=== PATIENT | female | born 1940 | race Caucasian/White ===

== ENCOUNTER → 2020-11-25 | Outpatient (CLI) | payer MEDICARE ==
[~2020-11-25] MED LIST: ALEN70TA71 PO; ATOR40TA59 PO; CHOL2400 MC; DICL1KIT14 TP; FLUT1DIS3 IH; FURO40TA4 PO; IRON15TA3 PO; METO25TA4 PO; MONT10TA49 PO; PANT20TA2 PO; POTA20TA4 PO; REGADENOSON 0.4 MG/5 ML DISP.SYRIN. IV ONE; ROPI0.5T4 PO; VENTOLIN HFA18 GM INH
--- NOTE | 2020-11-25 13:56 | RAD ---
MR#: [id number] Date of Study: 11/25/2020 Ordering Physician: MARGOTH VELAZQUEZ, Referring Physician: MARGOTH VELAZQUEZ, Tech: Michael Randle MBA, RDMS, RVT, RDCS, RTR APPROVED REPORT Patient Location: OUT-PATIENT Indications PAD VELOCITY AND DOPPLER WAVEFORM ANALYSIS RIGHT cm/secWaveformSeverity LEFT cm/secWaveform Severity dCFA 133.0BiphasicdCFA 83.0Biphasic Prof Fem Art. 108.0MonophasicProf Fem Art. 108.0Biphasic Fem Art Prox. 136.0BiphasicFem Art Prox. 109.0Biphasic Fem Art Mid. 102.0BiphasicFem Art Mid. 95.0Biphasic Fem Art Dist. 105.0BiphasicFem Art Dist. 97.0Biphasic Pop Art(Fossa) 77.0BiphasicPop Art(AK) 106.0Biphasic DEPUTY OF COUNTER INTELLIGENCE Prox. 72.0BiphasicPTA Prox. 98.0Biphasic DEPUTY OF COUNTER INTELLIGENCE Dist. 78.0BiphasicPTA Dist. 61.0Biphasic Per Art Mid. 72.0BiphasicPer Art Mid. JERRI Prox. 69.0BiphasicATA Prox. 78.0Biphasic DPA 68BiphasicDPA 71Biphasic Findings Grayscale images of the bilateral lower extremity arterial vessels demonstrates mild to moderate diff use atherosclerotic plaque. Spectral waveforms overall are biphasic in nature from the common femora l artery to the below-knee vessels. No focal obstruction is noted. There is three-vessel runoff on the right side and two-vessel runoff on the left side. The peroneal artery in the left side was not well visualized. Critical Notification Critical Value: No <Conclusion> 1. No significant lower extremity arterial disease bilaterally. Signed by : Kvng Rodriguez, Electronically Approved : 11/25/2020 13:56:18
--- NOTE | 2020-11-25 14:37 | CARD ---
MR#: [id number] Date of Study: 11/25/2020 Ordering Physician: MARGOTH VELAZQUEZ, Referring Physician: MARGOTH VELAZQUEZ Tech: [facility] APPROVED REPORT EXAM: Two-dimensional and M-mode echocardiogram with Doppler and color Doppler. Other Information Quality : AverageHR: 74bpm Rhythm : NSR INDICATION RISK FACTORS Hypertension Hyperlipidemia 2D DIMENSIONS RVDd3.7 (2.9-3.5cm)IVSd1.1 (0.7-1.1cm) LVDd4.1 (3.9-5.9cm)PWd1.1 (0.7-1.1cm) IVSs1.6 (0.8-1.2cm)LVDs3.2 (2.5-4.0cm) FS (%) 22.6 %PWs1.6 (0.8-1.2cm) SV33.7 mlLVEF(%)45.9 (>50%) Aortic Valve AoV Peak Jimmy.216.2cm/sAoV VTI40.0cm AO Peak GR.18.7mmHgLVOT Peak Jimmy.108.8cm/s LVOT VTI 19.36cmAO Mean GR.9mmHg Mitral Valve MV E Zxbatytj610.0cm/s TDI E/Lateral E'8.0E/Medial E'13.1 Tricuspid Valve TR P. Mpktjesh837ve/sTR Peak Gr.65mmHg LEFT VENTRICLE The left ventricle is normal size. There is borderline to mild concentric left ventricular hypertroph y. The left ventricular systolic function is normal and the ejection fraction is within normal range. EF 55% There is normal LV segmental wall motion. Tissue Doppler imaging reveals moderate left ventri cular diastolic dysfunction. RIGHT VENTRICLE The right ventricle is normal size. There is normal right ventricular wall thickness. The right ventr icular systolic function is normal. ATRIA The left atrium is severely dilated. The right atrium is mildly dilated. The interatrial septum is in tact with no evidence for an atrial septal defect or patent foramen ovale as noted on 2-D or Doppler imaging. AORTIC VALVE The aortic valve is calcified and displays decreased opening. Doppler and Color Flow revealed trace a ortic regurgitation. There is trace valvular aortic stenosis. MITRAL VALVE Mitral annular calcification is borderline. There is no evidence of mitral valve prolapse. There is n o mitral valve stenosis. Doppler and Color-flow revealed mild mitral regurgitation. TRICUSPID VALVE The tricuspid valve is normal in structure and function. Doppler and Color Flow revealed mild tricusp id regurgitation. Estimated PAP 72 mmHg. There is no tricuspid valve stenosis. PULMONIC VALVE The pulmonary valve is normal in structure and function. Doppler and Color Flow revealed mild to mode rate pulmonic valvular regurgitation. There is no pulmonic valvular stenosis. GREAT VESSELS The aortic root is normal in size. The ascending aorta is normal in size. The IVC is normal in size a nd collapses >50% with inspiration. PERICARDIAL EFFUSION There is no evidence of significant pericardial effusion. Critical Notification Critical Value: No <Conclusion> The left ventricular systolic function is normal and the ejection fraction is within normal range. EF 55% Doppler and Color Flow revealed mild tricuspid regurgitation. Estimated PAP 72 mmHg consistent with severe pulmonary HTN. Doppler and Color Flow revealed mild to moderate pulmonic valvular regurgitation. Signed by : Kvng Rodriguez, Electronically Approved : 11/25/2020 14:36:48
--- NOTE | 2020-11-26 13:42 | RAD ---
MR#: [id number] Date of Study: 11/25/2020 Ordering Physician: MARGOTH VELAZQUEZ, Referring Physician: CAROLINA MERAZ Tech: RT Luba (R) (N) APPROVED REPORT Test Type: Pharmacological Stress Nurse/Tech: Andres Batres RN Test Indications: CAD Cardiac History: Heart Cath 8mths ago, HTN, PPM, See EMR. Medications: See EMR. Medical History: Asthma/COPD, See EMR. Resting ECG: Paced, A-fib Resting Heart Rate: 85 bpm Resting Blood Pressure: 159/80mmHg Pretest Chest Pain: No chest pain Nurse/Tech Notes Lungs CTA, Heart tones irregular. Consent: The procedure was explained to the patient in lay terms. Informed consent was witnessed. Ketan eout was entered into [employer]. History and Stress Test performed by RT Brad (R) (N) Pharm. Details Pharmacologic stress testing was performed using 0.4mg per 5ml of regadenoson given intravenously ove r 7-10 seconds. Stress Symptoms No chest pain or symptoms. POST EXERCISE Reason for Termination: Infusion complete Max HR: 112 bpm Max Blood Pressure: 158/67mmHg Blood Pressure response to exercise: Normal blood pressure response during stress. Heart Rate response to exercise: WNL Chest Pain: No. Arrhythmia: No. ST Change: No. No changes from baseline EKG. INTERPRETATION Stress EKG Conclusion: No evidence of stress induced EKG changes. Baseilne atrial fibrillation with intermittent v-pacing Imaging Protocol IMAGE PROTOCOL: Rest Tc-99m/stress Tc-99m 1 day Rest: Stress: Viability: Radiopharm.Tc99m NlylbejuwQt42o Sestamibi Dose10.6mCi 32mCi Duration 13min. 13min. Img Date 11/25/2020 11/25/2020 Inj-Img Ttjw94lbr. 60min. Rest Admin Site:IV - Left WristAdministrator:RT Luba (R)(N) Stress Admin Site: IV - Left WristAdministrator: RT Brad (Ruddy)(N) STRESS DATA End Diast. Vol.104.0mlLVEDV index BSA56.0ml End Syst. Vol.41.0mlLVESV index BSA22.0ml Myocardial Ifkt402.0gEject. Llocybmi37.0% Stress Scores Regional WT1.00Summed WT19.00 Regional WM0.00Summed WM4.00 The rest and stress images show normal perfusion, normal contraction and thickening. LV Perf. Quant 17 Seg. SSS7.00 17 Seg. SRS2.00 17 Seg. SDS6.00 Stress Defect Extent (% LAD)0.00Rest Defect Extent (% LAD)0.00Rev. Defect Extent (% LAD)0.00 Stress Defect Extent (% LCX) 25.00Rest Defect Extent (% LCX)0.00Rev. Defect Extent (% LCX)20.00 Stress Defect Extent (% RCA)2.20Rest Defect Extent (% RCA)12.20Rev. Defect Extent (% RCA)2.20 Stress Defect Extent (% BEBE)10.20Rest Defect Extent (% BEBE)2.40Rev. Defect Extent (% BEBE)7.00 Other Information Quality:Fair Risk Assessment: Low Risk Conclusion 1. No evidence of stress induced EKG changes. 2. Normal perfusion at stress/rest. 3. Normal EF at 60% 4. Low risk study overall. Signed by : Kvng Rodriguez, Electronically Approved : 11/26/2020 11:28:19
== END ==
LOC: NM 08:07
PROVIDERS: ATTEND Internal Medicine Cardiovascular Disease
DX: I08.8 Other rheumatic multiple valve diseases (principal); I11.9 Hypertensive heart disease without heart failure; I70.0 Atherosclerosis of aorta; I73.9 Peripheral vascular disease, unspecified; I25.10 Atherosclerotic heart disease of native coronary artery without angina pectoris; I48.0 Paroxysmal atrial fibrillation
CPT/HCPCS: 78452; 93017; 93306; 93925; A9500; J2785

== ENCOUNTER 2021-04-29 11:21 | Inpatient (IN) | payer MEDICARE ==
[~2021-04-29] VITALS: Ht 157.5 cm; Wt 93.4 kg
[~2021-04-29 11:21] MED LIST changes: -REGADENOSON 0.4 MG/5 ML DISP.SYRIN. IV ONE
--- NOTE | 2021-04-29 11:43 | ED.ADGEN ---
General Adult EDM: Chief Complaint: LACERATION/AVULSION HPI: HPI: Patient is a 80 year old female coming in from nursing facility for bilateral chandler lacerations. Patient was trying to hurry to get to the restroom when she tripped and fell and slid her legs down the walker. No other complaints. Patient's last tetanus within 5 years. Takes aspirin but no other blood thinners. Review of Systems: Review of Systems: All other systems within normal limits except for as noted in the HPI Current Medications: Current Medications Medications (Trade) Dose Ordered Sig/Yg Start Time Stop Time Status Last Admin Dose Admin Cefazolin Sodium (Ancef Im) 2 gm 1X ONCE 04/29/21 14:15 04/29/21 14:16 DC 04/29/21 14:35 2 GM Fentanyl Citrate (Fentanyl 2ml Vial) 75 mcg 1X ONCE 04/29/21 11:45 04/29/21 11:46 DC 04/29/21 12:06 75 MCG Gelatin (Gelfoam Size 100) 1 each 1X ONCE 04/29/21 13:15 04/29/21 13:16 DC 04/29/21 13:58 1 EACH Lidocaine HCl (Lidocaine 1% 20ml Vial) 5 ml 1X ONCE 04/29/21 14:30 04/29/21 14:31 DC 04/29/21 14:39 5 ML Lidocaine/ Epinephrine (LIDOCAINE 2%-EPI 1:100,000 multi-dose) 20 ml 1X ONCE 04/29/21 11:45 04/29/21 11:46 DC 04/29/21 12:06 20 ML Lorazepam (Ativan) 0.5 mg 1X ONCE 04/29/21 12:15 04/29/21 12:16 DC 04/29/21 12:13 0.5 MG Tetracaine/ Epinephrine/ Lidocaine (Let (Zlnj-Epaxyiz-Eibnv) Gel) 6 ml 1X ONCE 04/29/21 12:15 04/29/21 12:16 DC 04/29/21 12:14 6 ML Thrombin 20,000 unit 1X ONCE 04/29/21 13:15 04/29/21 13:16 DC Allergies: Allergies: Allergies Coded Allergies Type Severity Reaction Last Updated Verified meperidine Allergy Mild "out of mind" 11/25/20 Yes Physical Exam: PE: Constitutional: Well developed, well nourished, no acute distress, non-toxic appearance. [] HENT: Normocephalic, atraumatic, bilateral external ears normal, nose normal. [] Eyes: PERRLA, conjunctiva normal, no discharge. [] Neck: No rigidity, supple, no stridor. [] Cardiovascular: Regular rate and rhythm, brisk cap refill [] Lungs & Thorax: Non labored symmetric respirations, no tachypnea or respiratory distress [] Abdomen: Soft, nondistended. Skin: Warm, dry, no erythema, no rash. Large anterior lower leg lacerations [] Back: Unremarkable Extremities: No deformities, range of motion grossly intact, no lower extremity edema [] Neurologic: Alert and oriented X 3, no focal deficits noted. [] Psychologic: Affect normal, judgement normal, mood normal. [] Current Patient Data: Vital Signs: Vital Signs Date Time Temp Pulse Resp B/P (MAP) Pulse Ox O2 Delivery O2 Flow Rate FiO2 04/29/21 11:25 98.4 83 24 164/72 (102) 99 Nasal Cannula 3.0 98.4 EKG: EKG: [] Heart Score: C/O Chest Pain: No Risk Factors: Risk Factors: DM, Current or recent (<one month) smoker, HTN, HLP, family history of CAD, obesity. Risk Scores: Score 0 - 3: 2.5% MACE over next 6 weeks - Discharge Home Score 4 - 6: 20.3% MACE over next 6 weeks - Admit for Clinical Observation Score 7 - 10: 72.7% MACE over next 6 weeks - Early Invasive Strategies Radiology/Procedures: Radiology/Procedures: [facility] [address] [place], [place] [id number] IMAGING REPORT Signed PATIENT: OLIVIER DIEGO ACCOUNT: [id number] : 1940 LOCATION: ER AGE: 80 SEX: F EXAM STATUS: PRE ER ORD. PHYSICIAN: AISHWARYA VAZQUEZ MD REASON: fall, chandler injury PROCEDURE: TIBIA FIBULA BILAT XR TIBIA+FIBULA 04/29/2021 11:22 AM INDICATION: Fall, Omari injury COMPARISON: None available. TECHNIQUE: 3 views of the right and 3 views of the left tibia and fibula are provided. FINDINGS/ IMPRESSION: Right: There is diffuse extensive edema along the proximal tibia. Osseous remode ling of the proximal fibula may reflect sequela of prior trauma. No acute fracture or dislocation is identified. Left: Remote healed fracture involving the middle one third of the left fibula. There is subcutaneous gas identified along the mid left leg laterally with focal subcutaneous edema. Correlate with any ulceration at this level. No definite periosteal reaction. No acute fracture or dislocation. Electronically signed by: Odalys Thompson MD (04/29/2021 12:35 PM) [id number] DICTATED and SIGNED BY: ODALYS THOMPSON MD DATE: 04/29/21 [id number] [] Patient was prepped and draped in normal fashion, wound irrigated and cleansed with copious normal saline. The right-sided 14 cm wound and left-sided 12 cm wound was anesthetized with lidocaine 2% with epinephrine. Depth of wound was examined and no foreign bodies found. Wound was approximated with 2-0 Ethilon suture in a simple pattern. 16 sutures were placed on right and 8 sutures on left placed without complication. Wound was then packed with iodoform packing on the left and both side dressed a nonadherent bandage Course & Med Decision Making: Course & Med Decision Making Patient lives alone and does not have any assistance. Son states that there is nobody available who will be able to assist patient. Also patient has significant blood loss and has a risk for rebleeding. Dragon Disclaimer: Draggloria Disclaimer: This electronic medical record was generated, in whole or in part, using a voice recognition dictation system. Departure Departure Impression: Primary Impression: Fall Additional Impressions: Laceration of right lower extremity Laceration of left lower extremity Disposition: ADMITTED INPATIENT Admitting Physician: BHARAT Condition: STABLE Referrals: SARAH BENSON MD (PCP) Patient Instructions: Laceration Care, Adult Additional Instructions: Follow-up with [facility] [address] [place] [address], [address] [place] [address] On Wednesday for wound care for appointment at 8:15 AM Scripts Sulfamethoxazole/Trimethoprim (BACTRIM DS TABLET) 1 Each Tablet 1 TAB PO BID for infection for 7 Days, #14 TAB Prov: AISHWARYA VAZQUEZ MD 04/29/21 Cephalexin (CEPHALEXIN) 500 Mg Tablet 1 TAB PO TID for antibiotic for 7 Days, #21 TAB Prov: AISHWARYA VAZQUEZ MD 04/29/21 Acetaminophen With Codeine (ACETAMINOPHEN-COD #3 TABLET) 1 Each Tablet 1 TAB PO PRN Q4HRS PRN for PAIN for 3 Days, #12 TAB Prov: AISHWARYA VAZQUEZ MD 04/29/21 Problem Qualifiers AISHWARYA VAZQUEZ MD Apr 29, 2021 11:43
[2021-04-29] MEDS ORDERED: LIDOCAINE 2%/EPI 1:100,000 20 ML VIAL. INJ ONE (11:45)
[2021-04-29] MEDS ORDERED: fentaNYL PF VIAL 100 MCG/2 ML VIAL IM ONE (11:45)
[2021-04-29] MEDS ORDERED: LIDOCAINE/EPI/TETRACAINE TOPICAL GEL 3 ML. TP ONE (12:15)
[2021-04-29] MEDS ORDERED: LORazepam 0.5 MG TABLET PO ONE (12:15)
[2021-04-29] MEDS ORDERED: GELATIN SPONGE SIZE 100. TP ONE ×2 (12:30→13:15)
--- NOTE | 2021-04-29 12:37 | RAD ---
XR TIBIA+FIBULA 04/29/2021 11:22 AM INDICATION: Fall, Omari injury COMPARISON: None available. TECHNIQUE: 3 views of the right and 3 views of the left tibia and fibula are provided. FINDINGS/ IMPRESSION: Right: There is diffuse extensive edema along the proximal tibia. Osseous remodeling of the proximal fibula may reflect sequela of prior trauma. No acute fracture or dislocation is identified. Left: Remote healed fracture involving the middle one third of the left fibula. There is subcutaneous gas identified along the mid left leg laterally with focal subcutaneous edema. Correlate with any ul ceration at this level. No definite periosteal reaction. No acute fracture or dislocation. Electronically signed by: Belem Dyson MD (04/29/2021 12:35 PM) [id number]
[2021-04-29] MEDS ORDERED: THROMBIN TOPICAL 20,000 UNIT SPRAY.SYRN KIT TP ONE (13:15)
[2021-04-29] MEDS ORDERED: ceFAZolin IM 1 GM VIAL IM ONE (14:15)
[2021-04-29] MEDS ORDERED: LIDOCAINE 1% Multi-Dose 20 ML VIAL. IM ONE (14:30)
[2021-04-29] MEDS ORDERED: CEPH500T PO (15:10)
[2021-04-29] MEDS ORDERED: SULF1TAB24 PO (15:10)
[2021-04-29] MEDS ORDERED: ACET1TAB33 PO (15:10)
[2021-04-29] MEDS ORDERED: ACETAMINOPHEN 325 MG TABLET. PO PRN (15:30)
[2021-04-29] MEDS ORDERED: ONDANSETRON PF 4 MG/2 ML VIAL. IVP PRN (15:30)
[2021-04-29] MEDS ORDERED: fentaNYL PF VIAL 100 MCG/2 ML VIAL IVP PRN (15:30)
[2021-04-29 16:47] LABS: BASO # 0.1 x10^3/uL (0.0-0.2); BASO % 1 % (0-3); EOS # 0.1 x10^3/uL (0.0-0.7); EOS % 2 % (0-3); HEMATOCRIT 34.7 % (36.0-47.0); HEMOGLOBIN 11.4 g/dL (12.0-15.5); LYMPH # 0.9 x10^3/uL (1.0-4.8); LYMPH % 14 % (24-48); MEAN CORPUSCULAR HEMOGLOBIN 29 pg (25-35); MEAN CORPUSCULAR HGB CONC 33 g/dL (31-37); MEAN CORPUSCULAR VOLUME 89 fL (79-100); MONO # 0.7 x10^3/uL (0.0-1.1); MONO % 11 % (0-9); NEUT # 4.5 x10^3/uL (1.8-7.7); NEUT % 72 % (31-73); PLATELET COUNT 172 x10^3/uL (140-400); RED BLOOD COUNT 3.91 x10^6/uL (3.50-5.40); RED CELL DISTRIBUTION WIDTH 14.9 % (11.5-14.5); WHITE BLOOD COUNT 6.2 x10^3/uL (4.0-11.0)
[2021-04-29 16:55] LABS: CALCIUM 8.9 mg/dL (8.5-10.1); CREATININE 1.3 mg/dL (0.6-1.0); GFR 39.2; POTASSIUM 4.4 mmol/L (3.5-5.1)
[2021-04-29 18:53] VITALS: BP 137/42
--- NOTE | 2021-04-29 21:50 | HP ---
DATE OF SERVICE: 04/29/2021 ADMIT DATE: 04/29/2021 CHIEF COMPLAINT: Fall with lacerations. HISTORY OF PRESENT ILLNESS: The patient is a pleasant 80-year-old female who presented from a detention. She fell. Apparently, she fell backwards and somehow tripped over her walker. The walker somehow scratched down her legs and caused severe lacerations to the anterior part of her shins. The ER doctor has sutured them. She states there was a lot of blood and some muscle showing. There is some adipose tissue. We are going to admit the patient and do some wound care and probably have to get her to rehab. PAST MEDICAL HISTORY: Debility, arthritis, falls, polypharmacy, UTI, asthma, anemia, hyperlipidemia, hypertension, incontinence, muscle spasms, edema, allergic rhinitis, GERD, osteoporosis. ALLERGIES: MEPERIDINE. FAMILY HISTORY: Hypertension. SOCIAL HISTORY: She does not drink, smoke or take drugs. She lives in a detention. MEDICATIONS: Reviewed. She is on 16, please refer to the MRAD. REVIEW OF SYSTEMS: Unable to obtain. She is pleasantly confused. PHYSICAL EXAMINATION: VITALS: Within normal limits and are stable. GENERAL: She is pleasantly confused. HEENT: Normal cephalic atraumatic, external auditory canals are patent. EYES: Extraocular muscles are intact, pupils are equally round and reactive to light and accommodation. MUSCULOSKELETAL: Well developed, well nourished, good range of motion. ENDOCRINE: No thyromegaly was palpated. LYMPHATICS: No cervical chain or axillary nodes were noted. HEMATOPOIETIC: No bruising. NECK: Supple, no JVD, no thyromegaly was noted. LUNGS: Clear to auscultation in all lung dockery without rhonchi or wheezing. HEART: RRR, S1, S2 present. Peripheral pulses intact, no obvious murmurs were noted. ABDOMEN: Soft, nontender. Positive bowel sounds no organomegaly, normal bowel sounds. EXTREMITIES: The lower extremities both have a large amount of clean, dry, intact dressings. Please see the pictures. NEUROLOGIC: She is pleasantly confused. PSYCHIATRIC: She is pleasantly confused. SKIN: No ulcerations or rashes, good skin turgor, no jaundice. VASCULAR: Good capillary refill, neurovascular bundle appears to be intact. LABORATORY DATA: Hemoglobin is 11.4. Electrolytes are basically normal other than a creatinine of 1.3. ASSESSMENT AND PLAN: Fall with lacerations. For now, we are going to admit the patient. Consult PT, OT and the Wound Care team, home meds, DVT prophylaxis. Full code. Consult [facility] for possible senior living. IV antibiotics. CHARMAINE DR: Alfredo TID: [id number]
[2021-04-29] MEDS: cefTRIAXone IV Push 1 GM VIAL. IVP SCH (21:53)
[2021-04-29 23:00] VITALS: BP 140/63
[2021-04-30 03:00] VITALS: BP 149/95
[2021-04-30 05:10] LABS: BASO # 0.1 x10^3/uL (0.0-0.2); BASO % 1 % (0-3); EOS # 0.1 x10^3/uL (0.0-0.7); EOS % 2 % (0-3); HEMATOCRIT 30.9 % (36.0-47.0); HEMOGLOBIN 10.3 g/dL (12.0-15.5); LYMPH # 0.7 x10^3/uL (1.0-4.8); LYMPH % 11 % (24-48); MEAN CORPUSCULAR HEMOGLOBIN 30 pg (25-35); MEAN CORPUSCULAR HGB CONC 33 g/dL (31-37); MEAN CORPUSCULAR VOLUME 89 fL (79-100); MONO # 0.9 x10^3/uL (0.0-1.1); MONO % 14 % (0-9); NEUT # 4.4 x10^3/uL (1.8-7.7); NEUT % 72 % (31-73); PLATELET COUNT 139 x10^3/uL (140-400); RED BLOOD COUNT 3.46 x10^6/uL (3.50-5.40); RED CELL DISTRIBUTION WIDTH 14.8 % (11.5-14.5); WHITE BLOOD COUNT 6.2 x10^3/uL (4.0-11.0)
[2021-04-30 05:24] LABS: CALCIUM 8.5 mg/dL (8.5-10.1); CREATININE 1.3 mg/dL (0.6-1.0); GFR 39.2; POTASSIUM 4.2 mmol/L (3.5-5.1)
[2021-04-30 07:00] VITALS: BP 146/60
[2021-04-30] MEDS: oxyCODONE/APAP 5/325 1 TAB TABLET PO PRN ×3 (09:09→21:07)
--- NOTE | 2021-04-30 10:59 | PDOC ---
[employer] PROGRESS NOTE Date of Service DOS: DATE: 04/30/21 TIME: 10:48 Chief Complaint Chief Complaint Lower Leg Lacerations bilaterally, History of Falls History of Present Illness History of Present Illness 04/30/2021 Patient seen and examined, patient in NAD and states she is feeling better than yesterday. Patient has bilateral lower leg lacerations that were sutured in ED, some fresh blood seen on bandages Patient is on Antibiotics (IV Rocephin) Consulted SW for evaluation for Custodial, consulted PT/OT Discussed with RN Reviewed chart Vitals/I&O Vitals/I&O: Vital Signs Date Time Temp Pulse Resp B/P (MAP) Pulse Ox O2 Delivery O2 Flow Rate FiO2 04/30/21 07:00 97.5 94 16 146/60 (88) 98 Nasal Cannula 3.0 97.5 I & O 04/29/21 04/29/21 04/30/21 15:00 23:00 07:00 Intake Total 120 ml Output Total 0 ml 350 ml Balance 0 ml -230 ml Labs Labs: Laboratory Tests Test 04/29/21 16:40 04/30/21 04:55 White Blood Count 6.2 x10^3/uL (4.0-11.0) 6.2 x10^3/uL (4.0-11.0) Red Blood Count 3.91 x10^6/uL (3.50-5.40) 3.46 x10^6/uL (3.50-5.40) Hemoglobin 11.4 g/dL (12.0-15.5) 10.3 g/dL (12.0-15.5) Hematocrit 34.7 % (36.0-47.0) 30.9 % (36.0-47.0) Mean Corpuscular Volume 89 fL (79-100) 89 fL (79-100) Mean Corpuscular Hemoglobin 29 pg (25-35) 30 pg (25-35) Mean Corpuscular Hemoglobin Concent 33 g/dL (31-37) 33 g/dL (31-37) Red Cell Distribution Width 14.9 % (11.5-14.5) 14.8 % (11.5-14.5) Platelet Count 172 x10^3/uL (140-400) 139 x10^3/uL (140-400) Neutrophils (%) (Auto) 72 % (31-73) 72 % (31-73) Lymphocytes (%) (Auto) 14 % (24-48) 11 % (24-48) Monocytes (%) (Auto) 11 % (0-9) 14 % (0-9) Eosinophils (%) (Auto) 2 % (0-3) 2 % (0-3) Basophils (%) (Auto) 1 % (0-3) 1 % (0-3) Neutrophils # (Auto) 4.5 x10^3/uL (1.8-7.7) 4.4 x10^3/uL (1.8-7.7) Lymphocytes # (Auto) 0.9 x10^3/uL (1.0-4.8) 0.7 x10^3/uL (1.0-4.8) Monocytes # (Auto) 0.7 x10^3/uL (0.0-1.1) 0.9 x10^3/uL (0.0-1.1) Eosinophils # (Auto) 0.1 x10^3/uL (0.0-0.7) 0.1 x10^3/uL (0.0-0.7) Basophils # (Auto) 0.1 x10^3/uL (0.0-0.2) 0.1 x10^3/uL (0.0-0.2) Sodium Level 136 mmol/L (136-145) 137 mmol/L (136-145) Potassium Level 4.4 mmol/L (3.5-5.1) 4.2 mmol/L (3.5-5.1) Chloride Level 101 mmol/L (98-107) 102 mmol/L (98-107) Carbon Dioxide Level 30 mmol/L (21-32) 31 mmol/L (21-32) Anion Gap 5 (6-14) 4 (6-14) Blood Urea Nitrogen 18 mg/dL (7-20) 16 mg/dL (7-20) Creatinine 1.3 mg/dL (0.6-1.0) 1.3 mg/dL (0.6-1.0) Estimated GFR (Cockcroft-Gault) 39.2 39.2 Glucose Level 102 mg/dL (70-99) 116 mg/dL (70-99) Calcium Level 8.9 mg/dL (8.5-10.1) 8.5 mg/dL (8.5-10.1) Assessment and Plan Assessmemt and Plan Problems Medical Problems: (1) Fall Status: Acute (2) Laceration of left lower extremity Status: Acute (3) Laceration of right lower extremity Status: Acute PLAN: Continue Antibiotics (IV Rocephin) Continue wound care Consult OT/PT Trend Labs, monitor Hgb Home Meds reconciled today and started Evaluation by Assistant Professor Of Criminal Justice for Custodial Full Code DVT Prophylaxis Comment Review of Relevant I have reviewed the following items talat (where applicable) has been applied. Medications: Current Medications Medications (Trade) Dose Ordered Sig/Yg Route PRN Reason Start Time Stop Time Status Last Admin Dose Admin Fentanyl Citrate (Fentanyl 2ml Vial) 75 mcg 1X ONCE IM 04/29/21 11:45 04/29/21 11:46 DC 04/29/21 12:06 Lidocaine/ Epinephrine (LIDOCAINE 2%-EPI 1:100,000 multi-dose) 20 ml 1X ONCE INJ 04/29/21 11:45 04/29/21 11:46 DC 04/29/21 12:06 Lorazepam (Ativan) 0.5 mg 1X ONCE PO 04/29/21 12:15 04/29/21 12:16 DC 04/29/21 12:13 Tetracaine/ Epinephrine/ Lidocaine (Let (Txsr-Fravqan-Jjfkj) Gel) 6 ml 1X ONCE TP 04/29/21 12:15 04/29/21 12:16 DC 04/29/21 12:14 Gelatin (Gelfoam Size 100) 1 each 1X ONCE TP 04/29/21 12:30 04/29/21 12:31 DC 04/29/21 13:58 Gelatin (Gelfoam Size 100) 1 each 1X ONCE TP 04/29/21 13:15 04/29/21 13:16 DC 04/29/21 13:58 Cefazolin Sodium (Ancef Im) 2 gm 1X ONCE IM 04/29/21 14:15 04/29/21 14:16 DC 04/29/21 14:35 Lidocaine HCl (Lidocaine 1% 20ml Vial) 5 ml 1X ONCE IM 04/29/21 14:30 04/29/21 14:31 DC 04/29/21 14:39 Fentanyl Citrate (Fentanyl 2ml Vial) 50 mcg PRN Q1HR PRN IVP PAIN 04/29/21 15:30 04/30/21 15:29 04/29/21 20:18 Ceftriaxone Sodium (Rocephin) 1 gm Q24H IVP 04/29/21 22:00 04/29/21 21:53 Oxycodone/ Acetaminophen (Percocet 5/325) 1 tab PRN Q4HRS PRN PO SEVERE PAIN 7-10 04/29/21 22:15 04/30/21 09:09 Justifications for Admission Other Justification CARLI BURTON III DO Apr 30, 2021 10:58
[2021-04-30 11:00] VITALS: BP 121/59
[2021-04-30] MEDS: ALBUTEROL SULFATE 2.5 MG/3 ML NEBU. NEB SCH ×3 (11:50→20:00)
[2021-04-30] MEDS: POTASSIUM CHLORIDE 20 MEQ TABLET.ER. PO SCH (12:26)
[2021-04-30] MEDS: FUROSEMIDE 40 MG TABLET. PO SCH (12:26)
[2021-04-30] MEDS: METOPROLOL TART IMMED RELEASE 25 MG TABLET. PO SCH ×2 (12:26→21:04)
[2021-04-30] MEDS ORDERED: NON FORMULARY ITEM (Albuterol Sulfate (Ventolin Hfa Inhaler) 2 PUFF) INH SCH (13:00)
[2021-04-30] MEDS ORDERED: NON FORMULARY ITEM (Cephalexin 1 TAB) PO SCH (14:00)
[2021-04-30 15:00] VITALS: BP 115/57
--- NOTE | 2021-04-30 15:22 | NUR ---
SW following. Discussed with RN, pt from [facility], 3L (uses oxygen at home), regular diet, COVID-19 negative. Therapy recommending SNF. LUISANA met with pt, pt agreeable, referral faxed to [facility]. Awaiting acceptance decision. LUISANA will continue to follow. Addendum: 04/30/21 at 1658 by YULIA LIEBERMAN [facility] stating pt does not have a skillable need. No word back from [facility] yet. LUISANA met with pt to discuss, pt agreeable to home health, has no preference, agreeable to [facility]. Referral faxed to [facility]. Dr. Valle notified. RN notified.
[2021-04-30 19:00] VITALS: BP 111/51
[2021-04-30] MEDS: BUDESONIDE 0.5 MG/2 ML NEBU. NEB SCH (20:00)
[2021-04-30] MEDS ORDERED: NON FORMULARY ITEM (Fluticasone/Salmeterol (Advair 250-50 Diskus) 1 INH) IH SCH (21:00)
[2021-04-30] MEDS ORDERED: SMZ/TMP 800/160MG TABLET. PO SCH (21:00)
[2021-04-30] MEDS: MONTELUKAST SODIUM 10 MG TABLET. PO SCH (21:03)
[2021-04-30] MEDS: rOPINIRole 0.25 MG TABLET. PO SCH (21:03)
[2021-04-30] MEDS: LACTOBACILLUS RHAMNOSUS GG 1 CAPSULE. PO SCH (21:03)
[2021-04-30] MEDS: ATORVASTATIN CALCIUM 40 MG TABLET. PO SCH (21:03)
[2021-04-30] MEDS: cefTRIAXone IV Push 1 GM VIAL. IVP SCH (21:04)
[2021-04-30 23:00] VITALS: BP 114/49
[2021-05-01 03:00] VITALS: BP 111/67
[2021-05-01 07:00] VITALS: BP 131/63
[2021-05-01] MEDS: ALBUTEROL SULFATE 2.5 MG/3 ML NEBU. NEB SCH ×4 (07:36→19:44)
[2021-05-01] MEDS: BUDESONIDE 0.5 MG/2 ML NEBU. NEB SCH ×2 (07:36→19:44)
[2021-05-01] MEDS: FUROSEMIDE 40 MG TABLET. PO SCH (08:48)
[2021-05-01] MEDS: POTASSIUM CHLORIDE 20 MEQ TABLET.ER. PO SCH (08:48)
[2021-05-01] MEDS: METOPROLOL TART IMMED RELEASE 25 MG TABLET. PO SCH ×2 (08:49→21:32)
[2021-05-01] MEDS: LACTOBACILLUS RHAMNOSUS GG 1 CAPSULE. PO SCH ×2 (08:49→21:32)
[2021-05-01] MEDS: PANTOPRAZOLE 40 MG TABLET.DR. PO SCH (08:49)
[2021-05-01] MEDS: ACETAMINOPHEN/CODEINE 300/30MG TABLET. PO PRN ×2 (08:52→14:52)
--- NOTE | 2021-05-01 09:36 | PDOC ---
[facility] PROGRESS NOTE Date of Service DOS: DATE: 05/01/21 TIME: 09:30 Chief Complaint Chief Complaint Lower Leg Lacerations bilaterally, History of Falls History of Present Illness History of Present Illness 05/01/2021 Patient seen and examined, in NAD. Bilateral leg lacerations wrapped in clean bandages Antibiotics hanging (IV Rocephin) Continue to work with SW for Half-Way evaluation, approval still pending Discussed with RN Chart Reviewed 04/30/2021 Patient seen and examined, patient in NAD and states she is feeling better than yesterday. Patient has bilateral lower leg lacerations that were sutured in ED, some fresh blood seen on bandages Patient is on Antibiotics (IV Rocephin) Consulted SW for evaluation for Half-Way, consulted PT/OT Discussed with RN Reviewed chart Vitals/I&O Vitals/I&O: Vital Signs Date Time Temp Pulse Resp B/P (MAP) Pulse Ox O2 Delivery O2 Flow Rate FiO2 05/01/21 08:49 79 131/63 05/01/21 07:37 98 Nasal Cannula 3.0 05/01/21 07:00 98.6 20 98.6 I & O 04/30/21 04/30/21 05/01/21 15:00 23:00 07:00 Intake Total 240 ml 500 ml 300 ml Output Total 500 ml Balance 240 ml 500 ml -200 ml Physical Exam General: Alert Heart: Regular rate, Normal S2 Abdomen: Normal bowel sounds Extremities: Other (Bandages on both lower extremities are clean dry intact) Skin: No breakdown Assessment and Plan Assessmemt and Plan Problems Medical Problems: (1) Fall Status: Acute (2) Laceration of left lower extremity Status: Acute (3) Laceration of right lower extremity Status: Acute Lower Extremity Lacerations Bilaterally History of Falls PLAN: Continue Antibiotics (IV Rocephin) Continue wound care Continue PT/OT Trend Labs Continue Home Meds Supplemental oxygen as needed Evaluation by Galley Hand for Half-Way, approval pending Full Code DVT Prophylaxis Comment Review of Relevant I have reviewed the following items talat (where applicable) has been applied. Medications: Current Medications Medications (Trade) Dose Ordered Sig/Yg Route PRN Reason Start Time Stop Time Status Last Admin Dose Admin Acetaminophen/ Codeine Phosphate (Tylenol #3) 1 tab PRN Q4HRS PRN PO MODERATE PAIN 04/30/21 10:00 05/01/21 08:52 Atorvastatin Calcium (Lipitor) 40 mg QHS PO 04/30/21 21:00 04/30/21 21:03 Furosemide (Lasix) 40 mg DAILY PO 04/30/21 11:00 05/01/21 08:48 Metoprolol Tartrate (Lopressor) 25 mg BID PO 04/30/21 11:00 05/01/21 08:49 Montelukast Sodium (Singulair) 10 mg HS PO 04/30/21 21:00 04/30/21 21:03 Potassium Chloride (Klor-Con) 20 meq DAILY PO 04/30/21 10:00 05/01/21 08:48 Pantoprazole Sodium (Protonix) 40 mg DAILYAC PO 05/01/21 07:30 05/01/21 08:49 Ropinirole HCl (Requip) 0.5 mg QHS PO 04/30/21 21:00 04/30/21 21:03 Albuterol Sulfate (Ventolin Neb Soln) 2.5 mg RTQID NEB 04/30/21 12:00 05/01/21 07:36 Budesonide (Pulmicort) 0.5 mg RTBID NEB 04/30/21 20:00 05/01/21 07:36 Lactobacillus Rhamnosus (Culturelle) 1 cap BID PO 04/30/21 21:00 05/01/21 08:49 Justifications for Admission Other Justification CARLI BURTON III DO May 01, 2021 09:36
[2021-05-01 10:51] VITALS: BP 146/59
[2021-05-01] MEDS: CALCIUM CARBONATE 500 MG TAB.CHEW PO PRN (14:52)
[2021-05-01 15:00] VITALS: BP 144/77
[2021-05-01 19:20] VITALS: BP 117/60
[2021-05-01] MEDS: ATORVASTATIN CALCIUM 40 MG TABLET. PO SCH (21:32)
[2021-05-01] MEDS: MONTELUKAST SODIUM 10 MG TABLET. PO SCH (21:32)
[2021-05-01] MEDS: rOPINIRole 0.25 MG TABLET. PO SCH (21:32)
[2021-05-01] MEDS: cefTRIAXone IV Push 1 GM VIAL. IVP SCH (21:33)
[2021-05-01] MEDS: oxyCODONE/APAP 5/325 1 TAB TABLET PO PRN (23:07)
[2021-05-01 23:15] VITALS: BP 136/57
[2021-05-02 03:12] VITALS: BP 114/63
[2021-05-02 07:31] VITALS: BP 113/53
[2021-05-02] MEDS: ALBUTEROL SULFATE 2.5 MG/3 ML NEBU. NEB SCH ×4 (08:00→20:22)
[2021-05-02] MEDS: PANTOPRAZOLE 40 MG TABLET.DR. PO SCH (08:01)
[2021-05-02] MEDS: METOPROLOL TART IMMED RELEASE 25 MG TABLET. PO SCH ×2 (09:01→21:18)
[2021-05-02] MEDS: LACTOBACILLUS RHAMNOSUS GG 1 CAPSULE. PO SCH ×2 (09:01→21:19)
[2021-05-02] MEDS: POTASSIUM CHLORIDE 20 MEQ TABLET.ER. PO SCH (09:01)
[2021-05-02] MEDS: FUROSEMIDE 40 MG TABLET. PO SCH (09:01)
[2021-05-02] MEDS: BUDESONIDE 0.5 MG/2 ML NEBU. NEB SCH ×2 (11:05→20:22)
[2021-05-02 11:36] VITALS: BP 113/48
--- NOTE | 2021-05-02 12:46 | PDOC ---
[facility] PROGRESS NOTE Date of Service DOS: DATE: 05/02/21 TIME: 12:46 Chief Complaint Chief Complaint Lower Leg Lacerations bilaterally, History of Falls History of Present Illness History of Present Illness 05/02 Patient evaluated examined at bedside. No complaints really. Continue antibiotics. Continue wound care. Still working on placement. 05/01/2021 Patient seen and examined, in NAD. Bilateral leg lacerations wrapped in clean bandages Antibiotics hanging (IV Rocephin) Continue to work with SW for Shelter evaluation, approval still pending Discussed with RN Chart Reviewed 04/30/2021 Patient seen and examined, patient in NAD and states she is feeling better than yesterday. Patient has bilateral lower leg lacerations that were sutured in ED, some fresh blood seen on bandages Patient is on Antibiotics (IV Rocephin) Consulted SW for evaluation for Shelter, consulted PT/OT Discussed with RN Reviewed chart Vitals/I&O Vitals/I&O: Vital Signs Date Time Temp Pulse Resp B/P (MAP) Pulse Ox O2 Delivery O2 Flow Rate FiO2 05/02/21 11:36 98.0 84 20 113/48 (69) 97 Nasal Cannula 3.0 98.0 I & O 05/01/21 05/01/21 05/02/21 15:00 23:00 07:00 Intake Total 500 ml 420 ml 240 ml Output Total 900 ml 900 ml Balance -400 ml -480 ml 240 ml Physical Exam General: Alert Heart: Regular rate, Normal S2 Abdomen: Normal bowel sounds Extremities: Other (Bandages on both lower extremities are clean dry intact) Skin: No breakdown Assessment and Plan Assessmemt and Plan Problems Medical Problems: (1) Fall Status: Acute (2) Laceration of left lower extremity Status: Acute (3) Laceration of right lower extremity Status: Acute Comment Review of Relevant I have reviewed the following items talat (where applicable) has been applied. Medications: Current Medications Medications (Trade) Dose Ordered Sig/Yg Route PRN Reason Start Time Stop Time Status Last Admin Dose Admin Calcium Carbonate/ Glycine (Tums) 500 mg PRN AFTMEALHC PRN PO INDIGESTION 05/01/21 13:15 05/01/21 14:52 Justifications for Admission Other Justification HARLEY GUTIERREZ MD May 02, 2021 12:46
[2021-05-02] MEDS: oxyCODONE/APAP 5/325 1 TAB TABLET PO PRN ×2 (15:08→21:18)
[2021-05-02 15:40] VITALS: BP 123/53
[2021-05-02 19:25] VITALS: BP 132/70
[2021-05-02] MEDS: MONTELUKAST SODIUM 10 MG TABLET. PO SCH (21:19)
[2021-05-02] MEDS: cefTRIAXone IV Push 1 GM VIAL. IVP SCH (21:19)
[2021-05-02] MEDS: rOPINIRole 0.25 MG TABLET. PO SCH (21:19)
[2021-05-02] MEDS: ATORVASTATIN CALCIUM 40 MG TABLET. PO SCH (21:20)
[2021-05-02 23:15] VITALS: BP 124/58
[2021-05-03 02:52] VITALS: BP 124/66
[2021-05-03 07:00] VITALS: BP 139/58
[2021-05-03] MEDS: BUDESONIDE 0.5 MG/2 ML NEBU. NEB SCH ×2 (07:13→21:30)
[2021-05-03] MEDS: ALBUTEROL SULFATE 2.5 MG/3 ML NEBU. NEB SCH ×4 (07:13→21:30)
[2021-05-03] MEDS: PANTOPRAZOLE 40 MG TABLET.DR. PO SCH (07:44)
[2021-05-03] MEDS: FUROSEMIDE 40 MG TABLET. PO SCH (09:13)
[2021-05-03] MEDS: LACTOBACILLUS RHAMNOSUS GG 1 CAPSULE. PO SCH ×2 (09:13→21:19)
[2021-05-03] MEDS: METOPROLOL TART IMMED RELEASE 25 MG TABLET. PO SCH ×2 (09:14→21:20)
[2021-05-03] MEDS: POTASSIUM CHLORIDE 20 MEQ TABLET.ER. PO SCH (09:14)
--- NOTE | 2021-05-03 09:20 | PDOC ---
[facility] PROGRESS NOTE Date of Service DOS: DATE: 05/03/21 TIME: 09:19 Chief Complaint Chief Complaint Lower Extremity Lacerations Bilaterally History of Falls PLAN: Continue Antibiotics (IV Rocephin) Continue wound care Continue PT/OT Trend Labs Continue Home Meds Supplemental oxygen as needed Evaluation by Cyber Incident Responder for Penitentiary, approval pending Full Code DVT Prophylaxis History of Present Illness History of Present Illness 05/03 Patient evaluated examined at bedside. Continue current plan. Continue antibiotics. Working on placement still. Plan of care discussed with bedside RN. 05/02 Patient evaluated examined at bedside. No complaints really. Continue antibiotics. Continue wound care. Still working on placement. 05/01/2021 Patient seen and examined, in NAD. Bilateral leg lacerations wrapped in clean bandages Antibiotics hanging (IV Rocephin) Continue to work with for Penitentiary evaluation, approval still pending Discussed with RN Chart Reviewed 04/30/2021 Patient seen and examined, patient in NAD and states she is feeling better than yesterday. Patient has bilateral lower leg lacerations that were sutured in ED, some fresh blood seen on bandages Patient is on Antibiotics (IV Rocephin) Consulted SW for evaluation for Penitentiary, consulted PT/OT Discussed with RN Reviewed chart Vitals/I&O Vitals/I&O: Vital Signs Date Time Temp Pulse Resp B/P (MAP) Pulse Ox O2 Delivery O2 Flow Rate FiO2 05/03/21 09:14 71 139/58 05/03/21 07:14 99 Nasal Cannula 3.0 05/03/21 07:00 97.4 20 97.4 I & O 05/02/21 05/02/21 05/03/21 14:59 22:59 06:59 Intake Total 120 ml 120 ml 120 ml Output Total 800 ml 100 ml Balance 120 ml -680 ml 20 ml Physical Exam General: Alert Heart: Regular rate, Normal S2 Abdomen: Normal bowel sounds Extremities: Other (Bandages on both lower extremities are clean dry intact) Skin: No breakdown Assessment and Plan Assessmemt and Plan Problems Medical Problems: (1) Fall Status: Acute (2) Laceration of left lower extremity Status: Acute (3) Laceration of right lower extremity Status: Acute Comment Review of Relevant I have reviewed the following items talat (where applicable) has been applied. Justifications for Admission Other Justification HARLEY GUTIERREZ MD May 03, 2021 09:20
[2021-05-03 11:00] VITALS: BP 118/53
[2021-05-03] MEDS: oxyCODONE/APAP 5/325 1 TAB TABLET PO PRN ×2 (11:31→21:20)
[2021-05-03 15:00] VITALS: BP 113/57
[2021-05-03 19:00] VITALS: BP 112/51
[2021-05-03] MEDS: cefTRIAXone IV Push 1 GM VIAL. IVP SCH (21:18)
[2021-05-03] MEDS: MONTELUKAST SODIUM 10 MG TABLET. PO SCH (21:19)
[2021-05-03] MEDS: ATORVASTATIN CALCIUM 40 MG TABLET. PO SCH (21:19)
[2021-05-03] MEDS: rOPINIRole 0.25 MG TABLET. PO SCH (21:19)
[2021-05-03 23:00] VITALS: BP 106/51
[2021-05-04 03:05] VITALS: BP 113/51
[2021-05-04 07:00] VITALS: BP 125/57
[2021-05-04] MEDS: BUDESONIDE 0.5 MG/2 ML NEBU. NEB SCH ×2 (08:04→19:49)
[2021-05-04] MEDS: ALBUTEROL SULFATE 2.5 MG/3 ML NEBU. NEB SCH ×4 (08:04→19:49)
[2021-05-04] MEDS: POTASSIUM CHLORIDE 20 MEQ TABLET.ER. PO SCH (09:56)
[2021-05-04] MEDS: PANTOPRAZOLE 40 MG TABLET.DR. PO SCH (09:56)
[2021-05-04] MEDS: FUROSEMIDE 40 MG TABLET. PO SCH (09:57)
[2021-05-04] MEDS: LACTOBACILLUS RHAMNOSUS GG 1 CAPSULE. PO SCH ×2 (09:57→22:04)
[2021-05-04] MEDS: METOPROLOL TART IMMED RELEASE 25 MG TABLET. PO SCH ×2 (09:57→22:05)
--- NOTE | 2021-05-04 10:53 | PDOC ---
[facility] PROGRESS NOTE Date of Service DOS: DATE: 05/04/21 TIME: 10:52 Chief Complaint Chief Complaint Lower Extremity Lacerations Bilaterally History of Falls PLAN: Continue Antibiotics (IV Rocephin) Continue wound care Continue PT/OT Trend Labs Continue Home Meds Supplemental oxygen as needed Evaluation by Program Engineer for Shelter, approval pending Full Code DVT Prophylaxis History of Present Illness History of Present Illness 05/04 Patient evaluated examined at bedside. Denies complaint. Continue antibiotics. Continue wound care. Still working on placement. 05/03 Patient evaluated examined at bedside. Continue current plan. Continue antibiotics. Working on placement still. Plan of care discussed with bedside RN. 05/02 Patient evaluated examined at bedside. No complaints really. Continue antibiotics. Continue wound care. Still working on placement. 05/01/2021 Patient seen and examined, in NAD. Bilateral leg lacerations wrapped in clean bandages Antibiotics hanging (IV Rocephin) Continue to work with for Shelter evaluation, approval still pending Discussed with RN Chart Reviewed 04/30/2021 Patient seen and examined, patient in NAD and states she is feeling better than yesterday. Patient has bilateral lower leg lacerations that were sutured in ED, some fresh blood seen on bandages Patient is on Antibiotics (IV Rocephin) Consulted SW for evaluation for Shelter, consulted PT/OT Discussed with RN Reviewed chart Vitals/I&O Vitals/I&O: Vital Signs Date Time Temp Pulse Resp B/P (MAP) Pulse Ox O2 Delivery O2 Flow Rate FiO2 05/04/21 09:57 72 125/57 05/04/21 08:05 97 Nasal Cannula 3.0 05/04/21 07:00 97.8 18 97.8 I & O 05/03/21 05/03/21 05/04/21 15:00 23:00 07:00 Intake Total 540 ml 920 ml Output Total 1100 ml 850 ml Balance -560 ml 920 ml -850 ml Physical Exam General: Alert Heart: Regular rate, Normal S2 Abdomen: Normal bowel sounds Extremities: Other (Bandages on both lower extremities are clean dry intact) Skin: No breakdown Assessment and Plan Assessmemt and Plan Problems Medical Problems: (1) Fall Status: Acute (2) Laceration of left lower extremity Status: Acute (3) Laceration of right lower extremity Status: Acute Comment Review of Relevant I have reviewed the following items talat (where applicable) has been applied. Justifications for Admission Other Justification HARLEY GUTIERREZ MD May 04, 2021 10:53
[2021-05-04 11:00] VITALS: BP 114/46
[2021-05-04 15:00] VITALS: BP 131/44
[2021-05-04 19:00] VITALS: BP 106/48
[2021-05-04] MEDS: cefTRIAXone IV Push 1 GM VIAL. IVP SCH (22:04)
[2021-05-04] MEDS: rOPINIRole 0.25 MG TABLET. PO SCH (22:04)
[2021-05-04] MEDS: MONTELUKAST SODIUM 10 MG TABLET. PO SCH (22:04)
[2021-05-04] MEDS: oxyCODONE/APAP 5/325 1 TAB TABLET PO PRN (22:05)
[2021-05-04] MEDS: ATORVASTATIN CALCIUM 40 MG TABLET. PO SCH (22:05)
[2021-05-04 23:00] VITALS: BP 107/51
[2021-05-04] MEDS: MAG HYDROX/ALUMINUM HYD/SIMETH 30 ML ORAL.SUSP PO PRN (23:11)
[2021-05-05 03:15] VITALS: BP 104/59
[2021-05-05 07:00] VITALS: BP 134/66
[2021-05-05] MEDS: BUDESONIDE 0.5 MG/2 ML NEBU. NEB SCH ×2 (07:18→21:25)
[2021-05-05] MEDS: ALBUTEROL SULFATE 2.5 MG/3 ML NEBU. NEB SCH ×4 (07:18→21:18)
[2021-05-05] MEDS: PANTOPRAZOLE 40 MG TABLET.DR. PO SCH (07:56)
[2021-05-05] MEDS: POTASSIUM CHLORIDE 20 MEQ TABLET.ER. PO SCH (09:16)
[2021-05-05] MEDS: LACTOBACILLUS RHAMNOSUS GG 1 CAPSULE. PO SCH ×2 (09:16→21:56)
[2021-05-05] MEDS: FUROSEMIDE 40 MG TABLET. PO SCH (09:17)
[2021-05-05] MEDS: METOPROLOL TART IMMED RELEASE 25 MG TABLET. PO SCH ×2 (09:17→21:56)
[2021-05-05] MEDS: oxyCODONE/APAP 5/325 1 TAB TABLET PO PRN ×2 (09:53→21:57)
[2021-05-05 11:00] VITALS: BP 106/65
--- NOTE | 2021-05-05 11:10 | PDOC ---
[facility] PROGRESS NOTE Date of Service DOS: DATE: 05/05/21 TIME: 11:10 Chief Complaint Chief Complaint Lower Extremity Lacerations Bilaterally History of Falls PLAN: Continue Antibiotics (IV Rocephin) Continue wound care Continue PT/OT Trend Labs Continue Home Meds Supplemental oxygen as needed Evaluation by Professional Services Manager for Detention, approval pending Full Code DVT Prophylaxis History of Present Illness History of Present Illness 05/05 Patient evaluated examined at bedside. No complaints. No major changes current plan. To work on placement. 05/04 Patient evaluated examined at bedside. Denies complaint. Continue antibiotics. Continue wound care. Still working on placement. 05/03 Patient evaluated examined at bedside. Continue current plan. Continue an tibiotics. Working on placement still. Plan of care discussed with bedside RN. 05/02 Patient evaluated examined at bedside. No complaints really. Continue antibiotics. Continue wound care. Still working on placement. 05/01/2021 Patient seen and examined, in NAD. Bilateral leg lacerations wrapped in clean bandages Antibiotics hanging (IV Rocephin) Continue to work with SW for Detention evaluation, approval still pending Discussed with RN Chart Reviewed 04/30/2021 Patient seen and examined, patient in NAD and states she is feeling better than yesterday. Patient has bilateral lower leg lacerations that were sutured in ED, some fresh blood seen on bandages Patient is on Antibiotics (IV Rocephin) Consulted SW for evaluation for Detention, consulted PT/OT Discussed with RN Reviewed chart Vitals/I&O Vitals/I&O: Vital Signs Date Time Temp Pulse Resp B/P (MAP) Pulse Ox O2 Delivery O2 Flow Rate FiO2 05/05/21 09:17 79 134/66 05/05/21 07:28 Nasal Cannula 3.0 05/05/21 07:18 100 05/05/21 07:00 97.6 16 97.6 I & O 05/04/21 05/04/21 05/05/21 15:00 23:00 07:00 Intake Total 300 ml 420 ml 240 ml Output Total 1200 ml Balance -900 ml 420 ml 240 ml Physical Exam General: Alert Heart: Regular rate, Normal S2 Abdomen: Normal bowel sounds Extremities: Other (Bandages on both lower extremities are clean dry intact) Skin: No breakdown Assessment and Plan Assessmemt and Plan Problems Medical Problems: (1) Fall Status: Acute (2) Laceration of left lower extremity Status: Acute (3) Laceration of right lower extremity Status: Acute Comment Review of Relevant I have reviewed the following items talat (where applicable) has been applied. Justifications for Admission Other Justification HARLEY GUTIERREZ MD May 05, 2021 11:10
--- NOTE | 2021-05-05 13:18 | NUR ---
Wound/Ostomy Care Wound Type/Assessment: WCRN consult for bilateral lower extremity lacerations from her walker when she fell last week. RLE was sutured closed in ER, LLE was sutured with packing in place in ER. Cleansed, removed packing, pictured and measured wounds. Treatment Recommendations/Plan: LLE-Cleanse wounds, pack with genesis collagen, cover with xeroform, ABD and kerlix, apply Medigrip size G. Change every day. RLE- Cleanse wound, apply xeroform, ABD and kerlix, cover with size G medigrip. Change daily. Education provided: WC POC and PU prevention, pt verbalized under standing of teaching Offloading surface/device: na Recommended Referrals/Tests: pt should follow up in [facility] if discharged home Discharge Recommendations for dressings: see above
[2021-05-05 15:00] VITALS: BP 96/53
[2021-05-05 19:00] VITALS: BP 134/57
[2021-05-05] MEDS: cefTRIAXone IV Push 1 GM VIAL. IVP SCH (21:55)
[2021-05-05] MEDS: rOPINIRole 0.25 MG TABLET. PO SCH (21:56)
[2021-05-05] MEDS: ATORVASTATIN CALCIUM 40 MG TABLET. PO SCH (21:56)
[2021-05-05] MEDS: MONTELUKAST SODIUM 10 MG TABLET. PO SCH (21:56)
[2021-05-05 22:54] VITALS: BP 114/47
[2021-05-06 03:03] VITALS: BP 108/48
[2021-05-06 07:00] VITALS: BP 125/77
[2021-05-06] MEDS: BUDESONIDE 0.5 MG/2 ML NEBU. NEB SCH ×2 (07:53→20:43)
[2021-05-06] MEDS: ALBUTEROL SULFATE 2.5 MG/3 ML NEBU. NEB SCH ×4 (07:53→20:43)
[2021-05-06] MEDS: PANTOPRAZOLE 40 MG TABLET.DR. PO SCH (09:17)
[2021-05-06] MEDS: POTASSIUM CHLORIDE 20 MEQ TABLET.ER. PO SCH (09:17)
[2021-05-06] MEDS: FUROSEMIDE 40 MG TABLET. PO SCH (09:18)
[2021-05-06] MEDS: LACTOBACILLUS RHAMNOSUS GG 1 CAPSULE. PO SCH ×2 (09:18→21:58)
[2021-05-06] MEDS: METOPROLOL TART IMMED RELEASE 25 MG TABLET. PO SCH ×2 (09:18→21:58)
[2021-05-06 11:00] VITALS: BP 122/65
[2021-05-06] MEDS: ACETAMINOPHEN/CODEINE 300/30MG TABLET. PO PRN (13:54)
[2021-05-06 15:00] VITALS: BP 123/62
[2021-05-06] MEDS: CALCIUM CARBONATE 500 MG TAB.CHEW PO PRN (15:42)
[2021-05-06] MEDS: oxyCODONE/APAP 5/325 1 TAB TABLET PO PRN ×2 (15:42→22:02)
[2021-05-06] MEDS: MAG HYDROX/ALUMINUM HYD/SIMETH 30 ML ORAL.SUSP PO PRN (15:44)
[2021-05-06 19:00] VITALS: BP 131/63
--- NOTE | 2021-05-06 21:01 | PDOC ---
[facility] PROGRESS NOTE Date of Service DOS: DATE: 05/06/21 TIME: 21:01 Chief Complaint Chief Complaint Lower Extremity Lacerations Bilaterally History of Falls PLAN: Continue Antibiotics (IV Rocephin) Continue wound care Continue PT/OT Trend Labs Continue Home Meds Supplemental oxygen as needed Evaluation by Ironer Machine for Halfway, approval pending Full Code DVT Prophylaxis History of Present Illness History of Present Illness 05/06 Patient evaluated examined at bedside. Reporting some leg pain but well controlled. Continue current plan. Once insurance approves either rehab or home health will discharge. 05/05 Patient evaluated examined at bedside. No complaints. No major changes current plan. To work on placement. 05/04 Patient evaluated examined at bedside. Denies complaint. Continue antibiotics. Continue wound care. Still working on placement. 05/03 Patient evaluated examined at bedside. Continue current plan. Continue antibiotics. Working on placement still. Plan of care discussed with bedside RN. 05/02 Patient evaluated examined at bedside. No complaints really. Continue antibiotics. Continue wound care. Still working on placement. 05/01/2021 Patient seen and examined, in NAD. Bilateral leg lacerations wrapped in clean bandages Antibiotics hanging (IV Rocephin) Continue to work with for Halfway evaluation, approval still pending Discussed with RN Chart Reviewed 04/30/2021 Patient seen and examined, patient in NAD and states she is feeling better than yesterday. Patient has bilateral lower leg lacerations that were sutured in ED, some fresh blood seen on bandages Patient is on Antibiotics (IV Rocephin) Consulted for evaluation for Halfway, consulted PT/OT Discussed with RN Reviewed chart Vitals/I&O Vitals/I&O: Vital Signs Date Time Temp Pulse Resp B/P (MAP) Pulse Ox O2 Delivery O2 Flow Rate FiO2 05/06/21 20:47 100 Nasal Cannula 3.0 05/06/21 19:00 98.2 65 18 131/63 (85) 98.2 I & O 05/05/21 05/05/21 05/06/21 15:00 23:00 07:00 Intake Total 0 ml Output Total 800 ml 200 ml Balance -800 ml -200 ml Physical Exam General: Alert Heart: Regular rate, Normal S2 Abdomen: Normal bowel sounds Extremities: Other (Bandages on both lower extremities are clean dry intact) Skin: No breakdown Assessment and Plan Assessmemt and Plan Problems Medical Problems: (1) Fall Status: Acute (2) Laceration of left lower extremity Status: Acute (3) Laceration of right lower extremity Status: Acute Comment Review of Relevant I have reviewed the following items talat (where applicable) has been applied. Justifications for Admission Other Justification HARLEY GUTIERREZ MD May 06, 2021 21:01
[2021-05-06] MEDS: rOPINIRole 0.25 MG TABLET. PO SCH (21:58)
[2021-05-06] MEDS: ATORVASTATIN CALCIUM 40 MG TABLET. PO SCH (21:58)
[2021-05-06] MEDS: MONTELUKAST SODIUM 10 MG TABLET. PO SCH (21:58)
[2021-05-06] MEDS: cefTRIAXone IV Push 1 GM VIAL. IVP SCH (21:58)
[2021-05-06 23:00] VITALS: BP 132/60
[2021-05-07 02:58] VITALS: BP 106/51
[2021-05-07 07:00] VITALS: BP 145/59
[2021-05-07] MEDS: ALBUTEROL SULFATE 2.5 MG/3 ML NEBU. NEB SCH ×2 (07:50→13:00)
[2021-05-07] MEDS: BUDESONIDE 0.5 MG/2 ML NEBU. NEB SCH (07:51)
[2021-05-07] MEDS: PANTOPRAZOLE 40 MG TABLET.DR. PO SCH (08:08)
[2021-05-07] MEDS ORDERED: NON FORMULARY ITEM (Alendronate Sodium 70 MG) PO SCH (09:00)
[2021-05-07] MEDS: POTASSIUM CHLORIDE 20 MEQ TABLET.ER. PO SCH (09:42)
[2021-05-07] MEDS: LACTOBACILLUS RHAMNOSUS GG 1 CAPSULE. PO SCH (09:42)
[2021-05-07] MEDS: METOPROLOL TART IMMED RELEASE 25 MG TABLET. PO SCH (09:43)
[2021-05-07] MEDS: FUROSEMIDE 40 MG TABLET. PO SCH (09:43)
[2021-05-07] MEDS ORDERED: CEFD300C PO (10:42)
--- NOTE | 2021-05-07 10:43 | SNU/HH DC ---
DISCHARGE WITH HOME HEALTH DISCHARGE INFORMATION: Discharge Date: May 07, 2021 Final Diagnosis: Problems Medical Problems: (1) Fall Status: Acute (2) Laceration of left lower extremity Status: Acute (3) Laceration of right lower extremity Status: Acute Condition on Discharge: Stable CODE STATUS: Code Status: Full HOME HEALTH: Face to Face: I certify this patient is under my care and that I, or a nurse practitioner or physician's fleet administrative assistant working with me, had a face to face encounter that meets the physician face to face encounter requirements with this patient on [05/07]. Correction For: Assess Cardiopulm Status, Assess & Educate Safety, Assess/Skilled Observatio RN For Eval/Treatment: Yes Physical Therapy For: Evalulation/Treatment Occupational Therapy For: Evaluation/Treatment Pt Meets Homebound Status: Extreme weakness w/ amb., Limited distance walking, Poor cognition POST DISCHARGE ORDERS: Activity Instructions for Disc: Activity as tolerated Weight Bearing Status after Di: As tolerated DIET AFTER DISCHARGE: Cardiac Wound/Incision Care: Ice to area for comfort CHECKS AFTER DISCHARGE: Checks after discharge: Check blood press - daily, Check your Temp as needed TREATMENT/EQUIPMENT ORDERS: Adaptive Equipment Issued: Front wheeled walker CERTIFICATION STATEMENT: Certification Statement: Certification Statement: Based on the above finding, I certify that this patient is confined to the home and needs intermittent usp care, physical therapy and/or speech therapy, or continues to need occupational therapy.~ This patient is under my care, and I have initiated the establishment of the plan of care.~ This patient will be followed by myself or a community physician who will periodically review the plan of care. Home Meds Active Scripts Cefdinir (CEFDINIR) 300 Mg Capsule, 1 CAP PO BID for infection for 3 Days, #6 CAP Prov:HARLEY GUTIERREZ MD 05/07/21 Acetaminophen With Codeine (ACETAMINOPHEN-COD #3 TABLET) 1 Each Tablet, 1 TAB PO PRN Q4HRS PRN for PAIN for 3 Days, #12 TAB Prov:AISHWARYA VAZQUEZ MD 04/29/21 Reported Medications Albuterol Sulfate (VENTOLIN HFA INHALER) 18 Gm Hfa.aer.ad, 2 PUFF INH QID for FOR ASTHMA, EACH 0 Refills 11/25/20 Diclofenac Sodium (Diclo Gel) 1 Each Kit, 1 EACH TP, EACH 11/25/20 Fluticasone/Salmeterol (ADVAIR 250-50 DISKUS) 1 Each Disk.w.dev, 1 INH IH BID, EACH 11/25/20 Iron,Carbonyl (IRON CHEWS) 15 Mg Tab.chew, 15 MG PO, TAB.CHEW 11/25/20 Ropinirole Hcl (ROPINIROLE HCL) 0.5 Mg Tablet, 0.5 MG PO DAILY, TAB 11/25/20 Montelukast Sodium (MONTELUKAST SODIUM TABLET ) 10 Mg Tablet, 10 MG PO HS for FOR ASTHMA, TAB 0 Refills 11/25/20 Metoprolol Tartrate (METOPROLOL TARTRATE) 25 Mg Tablet, 25 MG PO BID for FOR HYPERTENSION, #60 TAB 0 Refills 11/25/20 Atorvastatin Calcium (ATORVASTATIN CALCIUM) 40 Mg Tablet, 40 MG PO DAILY for FOR CHOLESTEROL, #30 TAB 0 Refills 11/25/20 Furosemide (FUROSEMIDE) 40 Mg Tablet, 40 MG PO DAILY, TAB 11/25/20 Pantoprazole Sodium (PROTONIX) 20 Mg Tablet.dr, 20 MG PO DAILY, TAB 11/25/20 Potassium Chloride (POTASSIUM CHLORIDE ) 20 Meq Tablet.er, 20 MEQ PO DAILY for SUPPLEMENT, TAB.SR 11/25/20 Cholecalciferol (Vitamin D3) (VITAMIN D3) 2,400 Unit/1 Ml Liquid, 2400 UNIT MC, LIQUID 11/25/20 Alendronate Sodium (ALENDRONATE SODIUM) 70 Mg Tablet, 70 MG PO WEEKLY, TAB 11/25/20 Discontinued Scripts Sulfamethoxazole/Trimethoprim (BACTRIM DS TABLET) 1 Each Tablet, 1 TAB PO BID for infection for 7 Days, #14 TAB Prov:AISHWARYA VAZQUEZ MD 04/29/21 Cephalexin (CEPHALEXIN) 500 Mg Tablet, 1 TAB PO TID for antibiotic for 7 Days, #21 TAB Prov:AISHWARYA VAZQUEZ MD 04/29/21 HARLEY GUTIERREZ MD May 07, 2021 10:43
--- NOTE | 2021-05-07 10:47 | PDOC3 ---
[facility]-Discharge Summary Date of Admission: Date of Admission: Apr 30, 2021 Date of Discharge: Date of Discharge: May 07, 2021 Admission Diagnosis: Problems: (1) Fall (2) Laceration of left lower extremity (3) Laceration of right lower extremity Discharge Diagnosis: Discharge Diagnosis: Same Hospital Course: Hospital Course: Chief Complaint Lower Extremity Lacerations Bilaterally History of Falls PLAN: Continue Antibiotics (IV Rocephin) Continue wound care Continue PT/OT Trend Labs Continue Home Meds Supplemental oxygen as needed Evaluation by Clinical Nursing Coordinator for Jail, approval pending Full Code DVT Prophylaxis History of Present Illness History of Present Illness 05/07 Patient evaluated at bedside. Leg pain controlled. Ready for discharge. Home health discharge. Greater than 30 minutes spent on the discharge of this patient. 05/06 Patient evaluated examined at bedside. Reporting some leg pain but well c ontrolled. Continue current plan. Once insurance approves either rehab or home health will discharge. 05/05 Patient evaluated examined at bedside. No complaints. No major changes current plan. To work on placement. 05/04 Patient evaluated examined at bedside. Denies complaint. Continue antibiotics. Continue wound care. Still working on placement. 05/03 Patient evaluated examined at bedside. Continue current plan. Continue antibiotics. Working on placement still. Plan of care discussed with bedside RN. 05/02 Patient evaluated examined at bedside. No complaints really. Continue antibiotics. Continue wound care. Still working on placement. 05/01/2021 Patient seen and examined, in NAD. Bilateral leg lacerations wrapped in clean bandages Antibiotics hanging (IV Rocephin) Continue to work with for Jail evaluation, approval still pending Discussed with RN Chart Reviewed 04/30/2021 Patient seen and examined, patient in NAD and states she is feeling better than yesterday. Patient has bilateral lower leg lacerations that were sutured in ED, some fresh blood seen on bandages Patient is on Antibiotics (IV Rocephin) Consulted SW for evaluation for Jail, consulted PT/OT Discussed with RN Reviewed chart Disposition: Disposition/Orders: D/C to Home w/ HH Activity: Activity: Resume previous activity Diet: Diet: Regular Medications: Home Meds Active Scripts Cefdinir (CEFDINIR) 300 Mg Capsule, 1 CAP PO BID for infection for 3 Days, #6 CAP Prov:HARLEY GUTIERREZ MD 05/07/21 Acetaminophen With Codeine (ACETAMINOPHEN-COD #3 TABLET) 1 Each Tablet, 1 TAB PO PRN Q4HRS PRN for PAIN for 3 Days, #12 TAB Prov:AISHWARYA VAZQUEZ MD 04/29/21 Reported Medications Albuterol Sulfate (VENTOLIN HFA INHALER) 18 Gm Hfa.aer.ad, 2 PUFF INH QID for FOR ASTHMA, EACH 0 Refills 11/25/20 Diclofenac Sodium (Diclo Gel) 1 Each Kit, 1 EACH TP, EACH 11/25/20 Fluticasone/Salmeterol (ADVAIR 250-50 DISKUS) 1 Each Disk.w.dev, 1 INH IH BID, EACH 11/25/20 Iron,Carbonyl (IRON CHEWS) 15 Mg Tab.chew, 15 MG PO, TAB.CHEW 11/25/20 Ropinirole Hcl (ROPINIROLE HCL) 0.5 Mg Tablet, 0.5 MG PO DAILY, TAB 11/25/20 Montelukast Sodium (MONTELUKAST SODIUM TABLET ) 10 Mg Tablet, 10 MG PO HS for FOR ASTHMA, TAB 0 Refills 11/25/20 Metoprolol Tartrate (METOPROLOL TARTRATE) 25 Mg Tablet, 25 MG PO BID for FOR HYPERTENSION, #60 TAB 0 Refills 11/25/20 Atorvastatin Calcium (ATORVASTATIN CALCIUM) 40 Mg Tablet, 40 MG PO DAILY for FOR CHOLESTEROL, #30 TAB 0 Refills 11/25/20 Furosemide (FUROSEMIDE) 40 Mg Tablet, 40 MG PO DAILY, TAB 11/25/20 Pantoprazole Sodium (PROTONIX) 20 Mg Tablet.dr, 20 MG PO DAILY, TAB 11/25/20 Potassium Chloride (POTASSIUM CHLORIDE ) 20 Meq Tablet.er, 20 MEQ PO DAILY for SUPPLEMENT, TAB.SR 11/25/20 Cholecalciferol (Vitamin D3) (VITAMIN D3) 2,400 Unit/1 Ml Liquid, 2400 UNIT MC, LIQUID 11/25/20 Alendronate Sodium (ALENDRONATE SODIUM) 70 Mg Tablet, 70 MG PO WEEKLY, TAB 11/25/20 Discontinued Scripts Sulfamethoxazole/Trimethoprim (BACTRIM DS TABLET) 1 Each Tablet, 1 TAB PO BID for infection for 7 Days, #14 TAB Prov:AISHWARYA VAZQUEZ MD 04/29/21 Cephalexin (CEPHALEXIN) 500 Mg Tablet, 1 TAB PO TID for antibiotic for 7 Days, #21 TAB Prov:AISHWARYA VAZQUEZ MD 04/29/21 Scheduled Albuterol Sulfate (Ventolin Hfa Inhaler), 2 PUFF INH QID, (Reported) Alendronate Sodium (Alendronate Sodium), 70 MG PO WEEKLY, (Reported) Atorvastatin Calcium (Atorvastatin Calcium), 40 MG PO DAILY, (Reported) Cefdinir (Cefdinir), 1 CAP PO BID Fluticasone/Salmeterol (Advair 250-50 Diskus), 1 INH IH BID, (Reported) Furosemide (Furosemide), 40 MG PO DAILY, (Reported) Metoprolol Tartrate (Metoprolol Tartrate), 25 MG PO BID, (Reported) Montelukast Sodium (Montelukast Sodium Tablet ), 10 MG PO HS, (Reported) Pantoprazole Sodium (Protonix), 20 MG PO DAILY, (Reported) Potassium Chloride (Potassium Chloride ), 20 MEQ PO DAILY, (Reported) Ropinirole Hcl (Ropinirole Hcl), 0.5 MG PO DAILY, (Reported) Scheduled PRN Acetaminophen With Codeine (Acetaminophen-Cod #3 Tablet), 1 TAB PO PRN Q4HRS PRN for PAIN Miscellaneous Medications Cholecalciferol (Vitamin D3) (Vitamin D3), 2,400 UNIT MC, (Reported) Diclofenac Sodium (Diclo Gel), 1 EACH TP, (Reported) Iron,Carbonyl (Iron Chews), 15 MG PO, (Reported) Discontinued Medications Cephalexin (Cephalexin), 1 TAB PO TID Sulfamethoxazole/Trimethoprim (Bactrim Ds Tablet), 1 TAB PO BID Justicifation of Admission Dx: Justifications for Admission: Justification of Admission Dx: Yes (fall,) HARLEY GUTIERREZ MD May 07, 2021 10:47
[2021-05-07 11:00] VITALS: BP 124/55
--- NOTE | 2021-05-07 15:36 | NUR ---
DISCHARGE INSTRUCTIONS GIVEN,QUESTIONS AND CONCERNS ANSWERED, PATIENT VERBALIZED UNDERSTANDING OF DISCHARGE INFORMATION INCLUDING TAKING ALL MEDICATIONS INSTRUCTED AND FOLLOWING UP WITH HER PRIMARY PROVIDER IN 1-2 WEEKS. ALL PERSONAL BELONGINGS GATHERED BY THE PATIENTS' DAUGHTER AND PLACED IN BAGS FOR DISCHARGE.
== END 2021-05-07 15:36 | disposition still patient (30) | DRG 604 ==
LOC: ER 11:21 → 5 SOUTH 15:00 → OBSVTOIN 04-30 12:25
PROVIDERS: ADMIT Internal Medicine; ATTEND Internal Medicine
DX: S81.812A Laceration without foreign body, left lower leg, initial encounter (principal); G93.41 Metabolic encephalopathy; N39.0 Urinary tract infection, site not specified; E78.5 Hyperlipidemia, unspecified; I10 Essential (primary) hypertension; J45.909 Unspecified asthma, uncomplicated; M81.0 Age-related osteoporosis without current pathological fracture; S00.01XA Abrasion of scalp, initial encounter; S00.81XA Abrasion of other part of head, initial encounter; S81.811A Laceration without foreign body, right lower leg, initial encounter; W01.0XXA Fall on same level from slipping, tripping and stumbling without subsequent striking against object, initial encounter; Y93.01 Activity, walking, marching and hiking; Z20.822 Contact with and (suspected) exposure to COVID-19; Z79.82 Long term (current) use of aspirin; Z82.49 Family history of ischemic heart disease and other diseases of the circulatory system; Z86.73 Personal history of transient ischemic attack (TIA), and cerebral infarction without residual deficits; Z91.81 History of falling; K21.9 Gastro-esophageal reflux disease without esophagitis; M19.90 Unspecified osteoarthritis, unspecified site; Y93.89 Activity, other specified; Y92.89 Other specified places as the place of occurrence of the external cause; Y99.8 Other external cause status
CPT/HCPCS: 12005; 36415; 80048; 85025; 94640; 94760; 96372; G0378; G0379; J0690; J0696; J3010; J3490; U0003; U0005; 73590-50; 97110-GP; 97116-GP; 97530-GP; 97535-GO; 99285-25; J7613; J7626